=== PATIENT | male | born 1940 | race African-American/Black ===

== ENCOUNTER 2020-04-29 00:09 | Inpatient (IN) | payer MEDICARE, MEDICAID ==
[~2020-04-29] VITALS: Ht 172.7 cm; Wt 80.7 kg
[2020-04-29] MEDS ORDERED: Acetaminophen 650 MG SUPP RECTAL ONE (00:15)
--- NOTE | 2020-04-29 00:18 | Emergency Room Report ---
History of Present Illness General Chief Complaint: Fever Source: Medical Record, EMS Present Illness HPI This is a 79-year-old male with history dementia. He resides in a [facility]. He is DNR. He presents with chief complaint of fever and altered mental status. Onset this morning. Fever been on and off. Better with Tylenol. He tested positive for Covid today. Because of the continued fever, he was sent here to be evaluated. Patient has decreased mentation. Decreased p.o. intake. No nausea vomiting or diarrhea. Unknown cough. History limited because of his dementia. 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 COVID-19 Screening: Positive COVID-19 COVID-19 Testing Source: 04/28/20 Patient History Past Medical History: see triage record, old chart reviewed, dementia Past Surgical History: other Pertinent Family History: none Social History: Denies: smoking Immunizations: other Reviewed Nursing Documentation: PMH: Agreed; PSxH: Agreed Review of Systems Constitutional: Reports: fever, malaise, weakness Eye: Denies: eye pain, blurred vision ENT: Denies: ear pain, nose congestion, throat swelling Respiratory: Denies: cough, shortness of breath Cardiovascular: Denies: chest pain, palpitations Gastrointestinal: Denies: abdominal pain, diarrhea, nausea, vomiting Musculoskeletal: Denies: back pain, joint pain Skin: Denies: rash Neurological: Denies: headache, numbness Endocrine: Denies: increased thirst, increased urine Hematologic/Lymphatic: Denies: easy bruising All Other Systems: negative except mentioned in HPI Physical Exam Vital Signs Date Time Temp Pulse Resp B/P (MAP) Pulse Ox O2 Delivery O2 Flow Rate FiO2 04/29/20 00:11 100.6 76 20 132/80 (97) 94 Room Air Vitals with low-grade fever Sp02 EP Interpretation: reviewed, normal General Appearance: lethargic, other - Ill-appearing Head: normocephalic, atraumatic Eyes: bilateral eye PERRL, bilateral eye EOMI ENT: hearing grossly normal, normal pharynx Neck: full range of motion, supple, no meningismus Respiratory: chest non-tender, lungs clear, normal breath sounds Cardiovascular #1: regular rate, rhythm, no murmur Gastrointestinal: normal bowel sounds, non tender, no mass, no organomegaly, no bruit, non-distended Musculoskeletal: back normal, normal range of motion, other - Contracted Psychiatric: other Procedures Critical Care Time Critical Care Time Critical care is mandated in this patient who presented with sepsis from Covid pneumonia. Patient require my urgent intervention to attenuate the risks of metabolic collapse which may lead to cardiovascular collapse and . Critical care time is 35 minutes excluding any reportable procedure. Critical c are time included evaluation, multiple reevaluation, looking at old charts, interpreting laboratory and diagnostic data, discussing case with patient and family and consultants, and charting. Medical Decision Making Diagnostic Impression: Primary Impression: Sepsis Qualified Codes: A41.9 - Sepsis, unspecified organism Additional Impressions: Pneumonia due to COVID-19 virus Acute metabolic encephalopathy ER Course Patient presents with fever and is positive for Covid. Chest x-ray show bilateral his tissue infiltrates. Patient received antibiotics here. Oxygenation is normal. Because of this I held off on Decadron. Prognosis is poor because of his age and medical condition. Will admit for further work-up. I contacted Dr. Deras for admission. EKG Diagnostic Results Troponin ordered: Yes Rate: normal Rhythm: NSR ST Segments: other - NSST changes Rhythm Strip Diag. Results Rate: 80 Rhythm: NSR Chest X-Ray Diagnostic Results Chest X-Ray Diagnostic Results : Chest X-Ray Ordered: Yes # of Views/Limited/Complete: 1 View Indication: Shortness of Breath EP Interpretation: Yes Interpretation: no effusion, no pneumothorax, other - b/l lower lobe infiltrates Impression: Other - b/l infiltrates Electronically Signed by: Harpreet Aaron MD Last Vital Signs Date Time Temp Pulse Resp B/P (MAP) Pulse Ox O2 Delivery O2 Flow Rate FiO2 04/29/20 00:11 100.6 76 20 132/80 (97) 94 Room Air Status: improved Disposition: ADMITTED INPATIENT Condition: Serious Harpreet Aaron MD Apr 29, 2020 00:18
[2020-04-29] MEDS ORDERED: ZOFRAN4 M3 ORAL (00:19)
[2020-04-29] MEDS ORDERED: TYLENOL325 MG ORAL (00:19)
[2020-04-29] MEDS ORDERED: OMEPRAZOLE20 M2 ORAL (00:19)
[2020-04-29] MEDS ORDERED: RISPERDAL0.5 MG ORAL (00:19)
--- NOTE | 2020-04-29 00:20 | NUR ---
ED Nurse Note: Pt came to the [facility]. C/O fever x1 day. Pt is covid postive 04/28/2020. current temp is 102.5.
--- NOTE | 2020-04-29 00:35 | NUR ---
ED Nurse Note: Monitor on, pt is on the hospital gown, and iv intiated. blood, Mrsa and vre swab, and urine sent to the lab. Lombardo cath 16f inserted. chest x-ray done.
[2020-04-29 00:45] VITALS: BP 128/73
[2020-04-29 00:56] LABS: APPEARANCE,URINE CLEAR; BILIRUBIN, URINE NEGATIVE (NEGATIVE); GLUCOSE, URINE (UA) NEGATIVE (NEGATIVE); KETONES,URINE NEGATIVE (NEGATIVE); LEUKOCYTE ESTERASE ,URINE NEGATIVE (NEGATIVE); NITRITE,URINE NEGATIVE (NEGATIVE); PH,URINE 5 (4.5-8.0); PROTEIN,URINE 2+ (NEGATIVE); UROBILINOGEN,URINE NORMAL MG/DL (0.0-1.0)
[2020-04-29 01:00] LABS: COLOR,URINE PALE YELLOW; HEMATOCRIT 40.2 % (42.0-52.0); HEMOGLOBIN 14.3 G/DL (14.2-18.0); MEAN CORPUSCULAR VOLUME 87 FL (80-99); PLATELET COUNT 101 K/UL (150-450); RED BLOOD COUNT 4.64 M/UL (4.70-6.10); RED CELL DISTRIBUTION WIDTH 14.7 % (11.6-14.8)
[2020-04-29 01:13] LABS: ANION GAP 6 mmol/L (5-15); BLOOD UREA NITROGEN 16 mg/dL (7-18); CALCIUM 9.1 MG/DL (8.5-10.1); CARBON DIOXIDE 31 MMOL/L (21-32); CHLORIDE 103 MMOL/L (98-107); CREATININE 1.1 MG/DL (0.55-1.30); POTASSIUM 4.4 MMOL/L (3.5-5.1); SODIUM 140 MMOL/L (136-145)
--- NOTE | 2020-04-29 01:17 | Diagnostic Imaging Report ---
EXAM: XR Chest, 1 View CLINICAL HISTORY: SOB TECHNIQUE: Frontal view of the chest. COMPARISON: No previous studies. FINDINGS: Lungs: Patchy airspace disease is noted medially at the right lung base possibly on the basis of earlier residual pneumonia. Pleural space: Unremarkable. No pneumothorax. Heart: Similar finding at the right to cardiac region of the left lung base. Heart is normal in size per Mediastinum: Unremarkable. Bones/joints: Osteopenia. 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 Vasculature: Atherosclerotic disease of the aortic knob. Upper abdomen: Elevation of the left hemidiaphragm. IMPRESSION: 1. Bibasilar patchy airspace disease differential etiologies for which includes by basilar pneumonias versus atelectasis. 2. Osteopenia.
[2020-04-29 01:28] LABS: ALANINE AMINOTRANSFERASE 67 U/L (12-78); ALBUMIN 3.9 G/DL (3.4-5.0); ALBUMIN/GLOBULIN RATIO 1.1 (1.0-2.7); ALKALINE PHOSPHATASE 51 U/L (46-116); ASPARTATE AMINO TRANSFERASE 59 U/L (15-37); BILIRUBIN,TOTAL 0.5 MG/DL (0.2-1.0); CKMB 10.4 NG/ML (0.0-3.6); CREATINE KINASE 1805 U/L (26-308); FERRITIN 502 NG/ML (8-388); LACTATE DEHYDROGENASE 188 U/L (81-234)
--- NOTE | 2020-04-29 01:40 | Emergency Room Report ---
Sepsis Event Note Evaluation Current Stage of Sepsis: Sepsis Possible Source: Pulmonary Focused Exam Allergies: Coded Allergies: No Known Allergies (Unverified , 04/29/20) Date Exam Occurred: Apr 29, 2020 Time Exam Occurred: 01:40 Laboratory Studies Laboratory Tests Test 04/29/20 00:32 04/29/20 01:27 White Blood Count 11.0 K/UL (4.8-10.8) H Red Blood Count 4.64 M/UL (4.70-6.10) L Hemoglobin 14.3 G/DL (14.2-18.0) Hematocrit 40.2 % (42.0-52.0) L Mean Corpuscular Volume 87 FL (80-99) Mean Corpuscular Hemoglobin 30.9 PG (27.0-31.0) Mean Corpuscular Hemoglobin Concent 35.7 G/DL (32.0-36.0) Red Cell Distribution Width 14.7 % (11.6-14.8) Platelet Count 101 K/UL (150-450) L Mean Platelet Volume 11.0 FL (6.5-10.1) H Neutrophils (%) (Auto) % (45.0-75.0) Lymphocytes (%) (Auto) % (20.0-45.0) Monocytes (%) (Auto) % (1.0-10.0) Eosinophils (%) (Auto) % (0.0-3.0) Basophils (%) (Auto) % (0.0-2.0) Differential Total Cells Counted 100 Neutrophils % (Manual) 91 % (45-75) H Lymphocytes % (Manual) 4 % (20-45) L Monocytes % (Manual) 5 % (1-10) Eosinophils % (Manual) 0 % (0-3) Basophils % (Manual) 0 % (0-2) Band Neutrophils 0 % (0-8) Platelet Estimate Decreased L Platelet Morphology Normal Anisocytosis 1+ Prothrombin Time 11.4 SEC (9.30-11.50) Prothromb Time International Ratio 1.0 (0.9-1.1) Activated Partial Thromboplast Time 24 SEC (23-33) D-Dimer 4.46 mg/L FEU (0.00-0.49) H Urine Color Pale yellow Urine Appearance Clear Urine pH 5 (4.5-8.0) Urine Specific [place] 1.025 (1.005-1.035) Urine Protein 2+ (NEGATIVE) H Urine Glucose (UA) Negative (NEGATIVE) Urine Ketones Negative (NEGATIVE) Urine Blood 1+ (NEGATIVE) H Urine Nitrite Negative (NEGATIVE) Urine Bilirubin Negative (NEGATIVE) Urine Urobilinogen Normal MG/DL (0.0-1.0) Urine Leukocyte Esterase Negative (NEGATIVE) Urine RBC 0-2 /HPF (0 - 0) H Urine WBC 0-2 /HPF (0 - 0) Urine Squamous Epithelial Cells Occasional /LPF Urine Bacteria Occasional /HPF (NONE) Urine Mucus Occasional /LPF Sodium Level 140 MMOL/L (136-145) Potassium Level 4.4 MMOL/L (3.5-5.1) Chloride Level 103 MMOL/L (98-107) Carbon Dioxide Level 31 MMOL/L (21-32) Anion Gap 6 mmol/L (5-15) Blood Urea Nitrogen 16 mg/dL (7-18) Creatinine 1.1 MG/DL (0.55-1.30) Estimat Glomerular Filtration Rate > 60 mL/min (>60) Glucose Level 131 MG/DL (74-106) H Lactic Acid Level 2.60 mmol/L (0.4-2.0) H Pending Calcium Level 9.1 MG/DL (8.5-10.1) Ferritin 502 NG/ML (8-388) H Total Bilirubin 0.5 MG/DL (0.2-1.0) Aspartate Amino Transf (AST/SGOT) 59 U/L (15-37) H Alanine Aminotransferase (ALT/SGPT) 67 U/L (12-78) Alkaline Phosphatase 51 U/L (46-116) Lactate Dehydrogenase 188 U/L (81-234) Total Creatine Kinase 1805 U/L (26-308) H Creatine Kinase MB 10.4 NG/ML (0.0-3.6) H Creatine Kinase MB Relative Index 0.5 Troponin I 0.013 ng/mL (0.000-0.056) C-Reactive Protein, Quantitative 3.6 mg/dL (0.00-0.90) H Pro-B-Type Natriuretic Peptide 117 pg/mL (0-125) Total Protein 7.4 G/DL (6.4-8.2) Albumin 3.9 G/DL (3.4-5.0) Globulin 3.5 g/dL Albumin/Globulin Ratio 1.1 (1.0-2.7) Lipase 94 U/L (73-393) Vital Signs Last 24 Hour Vital Signs Date Time Temp Pulse Resp B/P (MAP) Pulse Ox O2 Delivery O2 Flow Rate FiO2 04/29/20 00:50 72 19 Room Air 04/29/20 00:45 102.5 72 19 128/73 99 Room Air 04/29/20 00:11 100.6 76 20 132/80 (97) 94 Room Air Respiratory Exam: Rhonchi Cardiovascular Exam: RRR Capillary Refill: Less Than 2 Seconds Peripheral Pulse: Strong Pulse Location: Radial Skin Exam: Normal Turgor Harpreet Aaron MD Apr 29, 2020 01:40
[2020-04-29] MEDS ORDERED: Azithromycin 500 MG in NS 275 ML IV ONE (01:45)
[2020-04-29] MEDS ORDERED: Acetaminophen 650 MG SUPP RECTAL PRN ×3 (01:45→05:00)
[2020-04-29] MEDS ORDERED: cefTRIAXone 1 GM in NS 55 ML IVPB ONE (01:45)
[2020-04-29] MEDS ORDERED: Enoxaparin 80mg Inj SUBQ ONE (01:45)
--- NOTE | 2020-04-29 02:10 | NUR ---
TRANSFER TO FLOOR: Patient transferred 4E 409-2 as ordered, per Dr ortiz . Report given to TURNER Story. RN Transfered pt in a stable condition
--- NOTE | 2020-04-29 02:20 | NUR ---
NURSE NOTES: Received patient per rylee accompanied by ER STAFF. patient is alert and oriented x1.calm. on room air. no sob. iv access on the RFA, 18 gauge. noted with valdovinos catheter 16F, inserted in ED. DNR/DNI. pending cre and mrsa results. skin assessment done. no belongings. oriented to room set-up. reality orientation rendered. bed locked and in lowest position. call light and light button within easy reach. bed alarm on. vitals of 128/76mmhg, 78 bpm, 20 cpm, 99.1 F, 97% on room air.
[2020-04-29 04:00] VITALS: BP 126/78
--- NOTE | 2020-04-29 04:00 | NUR ---
NURSE NOTES: Received admission orders from dr. mason. noted and carried out. charge nurse made aware
--- NOTE | 2020-04-29 06:31 | NUR ---
NURSE HAND-OFF: Important Events on Shift: admission; temp of 98.2-99.1. Patient Status: stable Diet: regular Pending Orders: Pending Results/Labs: Pending MD notification: Latest Vital Signs: Temperature 98.1 , Pulse 76 , B/P 126 /78 , Respiratory Rate 20 , O2 SAT 97 , Room Air, O2 Flow Rate . Vital Sign Comment: Latest Reynolds Fall Score: 60 Fall Risk: High Risk Safety Measures: Call light Within Reach, Bed Alarm Zone 1, Side Rails Side Rails x2, Bed position Low and Locked. Fall Precautions: Yellow Socks Yellow Gown Door Sign Patient Fall Education Addendum: 04/29/20 at 0731 by Nettie Albarran RN HAND-OFF: Report given to juan olivera.
[2020-04-29] MEDS ORDERED: RISPERDAL1 MG/1 ML PO (06:39)
[2020-04-29 08:00] VITALS: BP 133/75
--- NOTE | 2020-04-29 08:00 | NUR ---
NURSE NOTES: received pt in bed, very somnolent. In NAD, no sign of pain or discomfort. RFA PIV access, saline locked. F/C for urinary retention. Bed locked at the lowest position possible, call light within easy reach, side rails x2. Will continue to monitor pt and follow up with the plan of care.
[2020-04-29 12:00] VITALS: BP 147/88
[2020-04-29 16:00] VITALS: BP 146/77
--- NOTE | 2020-04-29 17:00 | Consultation ---
DATE OF CONSULTATION: 04/29/2020 INFECTIOUS DISEASE CONSULTATION This consult is for coverage of Dr. Wright. CONSULTING PHYSICIAN: Fransisco Diaz MD PRIMARY ATTENDING: Naresh Deras MD REASON FOR CONSULTATION: COVID-19 disease. HISTORY OF PRESENT ILLNESS: This is a 79[facility] today because of fever, altered mental status. He had a positive test for COVID-19 in the facility yesterday. Had a temperature of 100.6. Had lactic acidosis. PAST MEDICAL HISTORY: Dementia with behavioral problem. ALLERGIES: No known drug allergy. MEDICATIONS: Getting risperidone, Tylenol, ceftriaxone, azithromycin. SOCIAL HISTORY: . [facility] resident. No other history obtainable by the patient. PHYSICAL EXAMINATION: VITAL SIGNS: Temperature 97.8, pulse 68, blood pressure 47/88. GENERAL APPEARANCE: Seems to have normal weight. No acute distress. HEAD AND NECK: Moist mucous membranes. [place] conjunctivae. HEART: Normal rate. LUNGS: Clear. Patient is on room air oxygen. ABDOMEN: Soft. EXTREMITIES: No edema. LABORATORY AND DIAGNOSTIC DATA: WBC 11, hemoglobin 14.3, hematocrit 40.2, platelets 101. Sodium 140, potassium 4.4, chloride 103, bicarb 30, BUN 16, creatinine 1.1, glucose 131. Lactic acid was initially 2.6, decreased to 1.9. CK elevated 1805. Urine negative. Chest x-ray patchy airspace disease, osteopenia. IMPRESSION: COVID-19 pneumonia. Patient is not hypoxic, he is on room air oxygen. Has altered mental status, acidosis, rhabdomyolysis, dementia. RECOMMENDATION: Continue with ceftriaxone and azithromycin. We will follow up the culture. We will follow up the clinical course. At the end of my exam, I thank Dr. Deras, for involving me in the care of this patient. Fransisco Diaz M.D. DR: JAMIL JOB#: [id number] CC: KERLINE
--- NOTE | 2020-04-29 19:35 | NUR ---
NURSE NOTES: Received report from juan olivera patient on bed, asleep. on room air. no sob. no moaning or facial grimacing noted. iv access on the right forearm, saline lock. valdovinos catheter 16 f, draining well. DNR/DNI. bed locked and in lowest position. call light and light button within easy reach. bed alarm on. side rails x3 up. will strictly follow isolation. will continue plan of care.
--- NOTE | 2020-04-29 19:46 | NUR ---
NURSE HAND-OFF: Important Events on Shift:[] Patient Status: [] Diet: [Regular] Pending Orders: [] Pending Results/Labs:[] Pending MD notification:[] Latest Vital Signs: Temperature 98.2 , Pulse 67 , B/P 146 /77 , Respiratory Rate 18 , O2 SAT 95 , Room Air, O2 Flow Rate . Vital Sign Comment: [] Latest Reynolds Fall Score: 60 Fall Risk: High Risk Safety Measures: Call light Within Reach, Bed Alarm Zone 1, Side Rails Side Rails x2, Bed position Low and Locked. Fall Precautions: Yellow Socks Yellow Gown Door Sign Patient Fall Education Report given to [TURNER Albarran].
[2020-04-29 20:00] VITALS: BP 137/78
--- NOTE | 2020-04-29 21:10 | NUR ---
FAMILY CONTACT DAUGHTER IRVIN HASSAN CALLED CELL [phone] UPDATED ON FACESHEET
--- NOTE | 2020-04-29 21:15 | History and Physical Report ---
DATE OF ADMISSION: 04/29/2020 HISTORY OF PRESENT ILLNESS: This is a 79-year-old male, [facility] from [facility] where he [facility] as COVID pneumonia. The patient has minimum short of breath and no palpitation. The patient is currently confused. He is in the bed. PAST MEDICAL HISTORY: Significant for depression, GERD, history of anemia. MEDICATIONS: He is taking omeprazole, Zofran, Risperdal. ALLERGIES: NKA. FAMILY HISTORY: Noncontributory. SOCIAL HISTORY: [facility], [facility]. PHYSICAL EXAMINATION: VITAL SIGNS: Blood pressure is 146/77, pulse 67, respirations 18, temperature 98.2. HEENT: AT, NC. EOMI. PERRLA. NECK: Supple. No JVD. CHEST: Bilateral few crackles. CARDIOVASCULAR: Regular rhythm. No gallop. No murmur. ABDOMEN: Soft. Positive bowel sounds. Nontender. EXTREMITIES: CCE. NEUROLOGICAL: The patient has generalized weakness. GENITOURINARY: Deferred. DIAGNOSTIC DATA: His chest x-ray, bibasilar patchy airspace disease, for bibasilar pneumonia, no . ASSESSMENT: 1. COVID pneumonia. 2. Hypertension. 3. Dementia. 4. Failure to thrive. PLAN: We will admit on medical floor. Start IV antibiotics, ceftriaxone, Zithromax, and Risperdal. Continue Decadron. Consider Pulmonary consult. Naresh Deras M.D. DR: BLANE JOB#: [id number] CC:
[2020-04-30] VITALS: BP 140/74
[2020-04-30 04:00] VITALS: BP 138/82
--- NOTE | 2020-04-30 06:17 | NUR ---
NURSE HAND-OFF: Important Events on Shift:[facility]; AFEBRILE Patient Status: STABLE Diet: REGULAR Pending Orders: Pending Results/Labs: Pending MD notification: Latest Vital Signs: Temperature 98.1 , Pulse 79 , B/P 138 /82 , Respiratory Rate 20 , O2 SAT 96 , Room Air, O2 Flow Rate . Vital Sign Comment: Latest Reynolds Fall Score: 60 Fall Risk: High Risk Safety Measures: Call light Within Reach, Bed Alarm Zone 1, Side Rails Side Rails x2, Bed position Low and Locked. Fall Precautions: Yellow Socks Yellow Gown Door Sign Patient Fall Education Addendum: 04/30/20 at 0749 by Nettie Albarran RN HAND-OFF: Report given to juan hernández.
[2020-04-30 08:00] VITALS: BP 144/77
[2020-04-30] MEDS ORDERED: Azithromycin 500 MG in D5W 275 ML IV SCH ×2 (08:00→11:00)
--- NOTE | 2020-04-30 08:00 | Consultation ---
DATE OF CONSULTATION: 04/29/2020 PULMONARY CONSULTATION CONSULTING PHYSICIAN: Rip Chakraborty MD HISTORY OF PRESENT ILLNESS: This is a 79-year-old male admitted to the hospital from a detention. He is DNR with dementia. He was admitted with a history of fever and altered mental status. He has been tested positive for COVID-19. He was sent for evaluation. Currently, he is saturating well on room air. PAST MEDICAL HISTORY: Dementia, DNR status, [facility] resident. ALLERGIES: None reported. HOME MEDICATIONS: Reviewed reconciled in the chart. PAST SURGICAL HISTORY: As discussed above. REVIEW OF SYSTEMS: Not obtainable. PHYSICAL EXAMINATION: GENERAL: Reveals a 79-year-old male. HEENT: Unremarkable. LUNGS: Clear breath sounds bilaterally. ABDOMEN: Soft. EXTREMITIES: There is no edema. NEUROLOGIC: Nonfocal. VITAL SIGNS: Blood pressure 140/80, heart rate 76/min, respiratory rate 18. LABORATORY DATA: Lab testing shows white count 11,000, hemoglobin 14. Chemistries normal. Lactic acid 2.6, now 1.9. Coags are negative. Urinalysis shows few pus cells. CXR obtained, which shows patchy bilateral lung field disease bilaterally. IMPRESSION: 1. COVID-19 pneumonia. 2. Normoxemia. 3. Dementia. 4. DNR. DISCUSSION: Agree with admission and care. Currently, the patient is doing well on room air. We will follow carefully. He is on broad-spectrum antibiotics, which I will continue. We will follow. Hold off on Decadron or remdesivir. Rip Chakraborty M.D. DR: KIMI JOB#: [id number] CC: KERLINE
[2020-04-30] MEDS ORDERED: cefTRIAXone 1 GM in D5W 55 ML IVPB SCH (09:00)
--- NOTE | 2020-04-30 09:00 | NUR ---
NURSE NOTES: received report from RN Jc Herrera. Patient in bed, asleep, in NAD, no sign of pain or discomfort. RFA PIV access, saline locked. F/C for urinary retention. Bed locked at the lowest position possible, call light within easy reach, side rails x2. Will continue to monitor pt and follow up with the plan of care.
--- NOTE | 2020-04-30 11:42 | Infectious Diseases Prog Note ---
Assessment/Plan Assessment/Plan antibiotics : ceftriaxone, azithromycin A 1. COVID 19 pneumonia on room air, 95 % saturation 2. GERD 3. anemia P 1. d/c ceftriaxone, azithromycin 2. observe off antibiotics 3. continue isolation Subjective ROS Limited/Unobtainable: Yes Allergies: Coded Allergies: No Known Allergies (Unverified , 04/29/20) Objective Last 24 Hour Vital Signs Date Time Temp Pulse Resp B/P (MAP) Pulse Ox O2 Delivery O2 Flow Rate FiO2 04/30/20 08:00 99.5 75 18 144/77 (99) 94 04/30/20 04:00 98.1 79 20 138/82 (100) 96 04/30/20 00:00 98.2 76 18 140/74 (96) 95 04/29/20 21:00 Room Air 04/29/20 20:00 98.3 77 18 137/78 (97) 96 04/29/20 16:00 98.2 67 18 146/77 (100) 95 04/29/20 12:00 97.8 68 18 147/88 (107) 95 Height (Feet): 5 Height (Inches): 8.00 Weight (Pounds): 178 Microbiology Date/Time Source Procedure Growth Status 04/29/20 00:32 Blood Blood Culture - Preliminary NO GROWTH AFTER 24 HOURS Resulted 04/29/20 00:32 Blood Blood Culture - Preliminary NO GROWTH AFTER 24 HOURS Resulted Current Medications Medications (Trade) Dose Ordered Sig/Allegra Route PRN Reason Start Time Stop Time Status Last Admin Dose Admin Acetaminophen (Tylenol) 650 mg Q4H PRN RECTAL Mild Pain (Pain Scale 1-3) 04/29/20 05:00 05/29/20 04:59 Acetaminophen (Tylenol) 650 mg Q4H PRN RECTAL Temp >100.5 04/29/20 05:00 05/29/20 04:59 Azithromycin 500 mg/Dextrose 275 ml @ 275 mls/hr Q24HRS IV 04/30/20 11:00 05/06/20 11:59 Ceftriaxone Sodium 1 gm/ Dextrose 55 ml @ 110 mls/hr Q24H IVPB 04/30/20 09:00 05/07/20 08:59 04/30/20 09:49 Risperidone (RisperDAL) 0.5 mg BID ORAL 04/29/20 09:00 06/13/20 08:59 04/30/20 09:47 Rizwana Wright MD Apr 30, 2020 11:42
[2020-04-30 12:00] VITALS: BP 138/72
--- NOTE | 2020-04-30 12:07 | General Progress Note ---
Subjective Date patient seen: Apr 30, 2020 Constitutional: Reports: no symptoms Allergies: Coded Allergies: No Known Allergies (Unverified , 04/29/20) Objective Last 24 Hour Vital Signs Date Time Temp Pulse Resp B/P (MAP) Pulse Ox O2 Delivery O2 Flow Rate FiO2 04/30/20 08:00 99.5 75 18 144/77 (99) 94 04/30/20 04:00 98.1 79 20 138/82 (100) 96 04/30/20 00:00 98.2 76 18 140/74 (96) 95 04/29/20 21:00 Room Air 04/29/20 20:00 98.3 77 18 137/78 (97) 96 04/29/20 16:00 98.2 67 18 146/77 (100) 95 Intake and Output 04/29/20 04/30/20 18:59 06:59 Intake Total 240 ml 150 ml Output Total 600 ml 350 ml Balance -360 ml -200 ml Intake Oral 240 ml 150 ml Output Urine Total 600 ml 350 ml Height (Feet): 5 Height (Inches): 8.00 Weight (Pounds): 178 General Appearance: confused EENT: PERRL/EOMI Neck: supple Cardiovascular: regular rhythm Respiratory/Chest: crackles/rales Abdomen: non tender, soft Extremities: non-tender Assessment/Plan Assessment/Plan: 1 covid pna 2 uti 3 failure of thrive 4 htn 5 dementia iv abx iv decadrone id and pulmo consult resume gt feeding Usman Deras MD Apr 30, 2020 12:07
--- NOTE | 2020-04-30 12:50 | Pulmonology Progress Note ---
Subjective ROS Limited/Unobtainable: Yes Interval Events: none new Constitutional: Reports: no symptoms HEENT: Repors: no symptoms Respiratory: Reports: no symptoms Cardiovascular: Reports: no symptoms Gastrointestinal/Abdominal: Reports: no symptoms Allergies: Coded Allergies: No Known Allergies (Unverified , 04/29/20) Objective Last 24 Hour Vital Signs Date Time Temp Pulse Resp B/P (MAP) Pulse Ox O2 Delivery O2 Flow Rate FiO2 04/30/20 12:00 99.2 80 18 138/72 (94) 95 04/30/20 09:00 Room Air 04/30/20 08:00 99.5 75 18 144/77 (99) 94 04/30/20 04:00 98.1 79 20 138/82 (100) 96 04/30/20 00:00 98.2 76 18 140/74 (96) 95 04/29/20 21:00 Room Air 04/29/20 20:00 98.3 77 18 137/78 (97) 96 04/29/20 16:00 98.2 67 18 146/77 (100) 95 Intake and Output 04/29/20 04/30/20 19:00 07:00 Intake Total 240 ml 150 ml Output Total 600 ml 350 ml Balance -360 ml -200 ml Intake Oral 240 ml 150 ml Output Urine Total 600 ml 350 ml Objective 04/30/2020 pt appears failure to thrive, sitting in bed chewing meals provided by [employer]PER[employer]; NAD; well saturated on RA General Appearance: other - thin HEENT: normocephalic, atraumatic Respiratory: chest wall non-tender, lungs clear, normal breath sounds Cardiovascular: normal rate, regular rhythm, no JVD Abdomen: soft, non tender Genitourinary: other - Lombardo Extremities: no edema Microbiology Date/Time Source Procedure Growth Status 04/29/20 00:32 Blood Blood Culture - Preliminary NO GROWTH AFTER 24 HOURS Resulted 04/29/20 00:32 Blood Blood Culture - Preliminary NO GROWTH AFTER 24 HOURS Resulted Current Medications Medications (Trade) Dose Ordered Sig/Allegra Route PRN Reason Start Time Stop Time Status Last Admin Dose Admin Acetaminophen (Tylenol) 650 mg Q4H PRN RECTAL Mild Pain (Pain Scale 1-3) 04/29/20 05:00 05/29/20 04:59 Acetaminophen (Tylenol) 650 mg Q4H PRN RECTAL Temp >100.5 04/29/20 05:00 05/29/20 04:59 Risperidone (RisperDAL) 0.5 mg BID ORAL 04/29/20 09:00 06/13/20 08:59 04/30/20 09:47 Assessment/Plan Assessment/Plan IMPRESSION: 1. COVID-19 pneumonia. - Cont broad-spectrum Abx - CXR 04/29/2020: Bibasilar patchy airspace disease 2. Normoxemia. - doing well on room air - Hold off on Decadron or remdesivir. 3. Dementia. 4. DNR. The history of Rudy Almaraz has been reviewed and management options for him have been examined and discussed by Rip Chakraborty. I have personally examined and interviewed the patient. The care for this patient was discussed with my supervising physician Time spent for this care was approximately 31 Roldan Montoya Apr 30, 2020 12:50 Rip Chakraborty MD Apr 30, 2020 17:35
--- NOTE | 2020-04-30 14:21 | NUR ---
NURSE NOTES:WOUND CARE NOTES:Pt presented on admission with multiple Pressure Injuries. Sacrum is red ,non-blanching with surrounding darker skin tone without fluctuance ,induration.(L)1.5cm x (W)4cm. DTPI L Trochanter(L)5cm x (W)9cm. Base of pressure Injury is maroon and indurated.No evidence of further skin breakdown periwound. No erythema noted to R trochanteric. Non-Blanchable erythema with delineated Margins,that is boggy noted to R Heel (L)5cm x (W)4.3cm. L Heel is boggy with Non-Blanchable erythema. Tx.Plan: Apply Moisture Barrier Paste to Sacrum. Cover with Optifoam Drsg. Change every 3 days and prn. Apply Cavilon Skin Barrier to R and L Trochanteric areas. Cover each site with Optifoam drsg. Apply Cavilon Skin Barrier to R and L Heels. Cover each heel with Optifoam drsg. Change every 7 days and prn. Reposition at least every 2hours or as tolerated. Off-load heels with Pillow.
[2020-04-30] MEDS: Megace 400mg/10ml Susp ORAL SCH (14:23)
[2020-04-30] MEDS: Azithromycin 500 MG in D5W 275 ML IV SCH (14:24)
[2020-04-30 16:00] VITALS: BP 134/69
--- NOTE | 2020-04-30 16:13 | NUR ---
CASE MANAGEMENT:INITIAL REVIEW 79 YR OLD MALE BIBA FROM [facility] CC;FEVER SI;COVID PNEUMONIA. SEPSIS. ACUTE METABOLIC ENCEPHALOPATHY. 102.5 72 20 132/80 94% ON RA WBC 11.0 PLT 101 LAC ACID 2.60 FERRITIN 502 AST 59 TCK 1805 CK-2 10.4 CRP 3.6 D-DIMER 4.46 UA+ PROTEIN, BLOOD, RBC IS;TYLENOL RECTAL IVF NS BOLUS ROCEPHIN IV ZITHROMAX IVB LOVENOX SQ ADMITTED TO MED SURG MED SURG STATUS DCP;FROM [facility]
[2020-04-30] MEDS ORDERED: MULTIVITAMIN1 EACH PO (17:33)
[2020-04-30] MEDS ORDERED: ACETAMINOPHEN325 M1 ORAL (17:33)
[2020-04-30] MEDS ORDERED: TWOCAL HN LIQU237 ML PO (17:33)
[2020-04-30] MEDS ORDERED: RISPERDAL0.5 MG ORAL (17:33)
--- NOTE | 2020-04-30 19:30 | NUR ---
NURSE HAND-OFF: Important Events on Shift:[] Patient Status: [stable] Diet: [regular with Sae TID] Pending Orders: [nutr eval] Pending Results/Labs:[] Pending MD notification:[] Latest Vital Signs: Temperature 98.4 , Pulse 87 , B/P 134 /69 , Respiratory Rate 20 , O2 SAT 95 , Room Air, O2 Flow Rate . Vital Sign Comment: [] Latest Reynolds Fall Score: 60 Fall Risk: High Risk Safety Measures: Call light Within Reach, Bed Alarm Zone 1, Side Rails Side Rails x2, Bed position Low and Locked. Fall Precautions: Yellow Socks Yellow Gown Door Sign Patient Fall Education Report given to [TURNER Cuello].
[2020-04-30 20:00] VITALS: BP 134/72
--- NOTE | 2020-04-30 20:00 | NUR ---
NURSE NOTES: Patient received in bed, awake, calm, disoriented, speech incomprehensible. FC draining. IV intact. Bed locked in low position. Will continue to monitor.
--- NOTE | 2020-04-30 23:07 | Psychiatry Consultation ---
Psychiatry Consultation Psychiatry Consultation Chief Complaint: Fever History of Present Illness: 79-year-old male with a history of depression, GERD, and anemia. He has been admitted to the hospital due to COVID pneumonia. The patient presents with depressed mood, anhedonia, anxiety, low energy, fatigue. PAST PSYCHIATRIC HISTORY: Depression and anxiety. PAST MEDICAL HISTORY: GERD and anemia. ALLERGIES: No known drug allergies. SUBSTANCE ABUSE HISTORY: No history of illicit drug use or alcohol. MENTAL STATUS EXAMINATION: The patient is alert, oriented times self, place, situation. Mood is depressed. Affect is blunted, congruent with mood. Thought process is concrete. Thought content, no suicidal, homicidal ideation. Cognition is impaired. Insight and judgment fair. ASSESSMENT: [place] I Major depressive disorder. [place] II Deferred. [place] III COVID-19. [place] IV Low. [place] V 50 PLAN: 1. We will start the patient on antidepressant. 2. Provide the patient with reality orientation and supportive therapy. Allergies: Coded Allergies: No Known Allergies (Unverified , 04/29/20) Medication History Scheduled Multivitamin (Multivitamin), 1 EACH PO DAILY, (Reported) Nut.sup,Spec.frm,L-Fr,Iron/Fos (Twocal Hn Liquid), 237 ML PO DAILY, (Reported) Omeprazole (Omeprazole), 20 MG ORAL DAILY, (Reported) Risperidone* (Risperdal*), 0.5 MG ORAL BID, (Reported) Scheduled PRN Acetaminophen* (Acetaminophen 325MG Tablet*), 650 MG ORAL Q4H PRN for TEMP>100F , (Reported) Ondansetron* (Zofran*), 4 MG ORAL Q6H PRN for Nausea & Vomiting, (Reported) Discontinued Medications Risperidone (Risperdal), 0.5 MG PO BID, (Reported) Discontinued Reason: Prescription changed Objective Data Height (Feet): 5 Height (Inches): 8.00 Weight (Pounds): 178 Emily Rowland MD Apr 30, 2020 23:07
[2020-05-01] VITALS: BP 120/69
[2020-05-01 04:00] VITALS: BP 121/68
--- NOTE | 2020-05-01 07:47 | NUR ---
NURSE HAND-OFF: Important Events on Shift:[uneventful] Patient Status: [stable] Diet: [Reg] Pending Orders: [] Pending Results/Labs:[] Pending MD notification:[] Latest Vital Signs: Temperature 97.8 , Pulse 59 , B/P 121 /68 , Respiratory Rate 20 , O2 SAT 96 , Room Air, O2 Flow Rate . Vital Sign Comment: [] Latest Reynolds Fall Score: 50 Fall Risk: High Risk Safety Measures: Call light Within Reach, Bed Alarm Zone 1, Side Rails Side Rails x2, Bed position Low and Locked. Fall Precautions: Yellow Socks Yellow Gown Door Sign Patient Fall Education Report given to [Solis TOMPKINS].
--- NOTE | 2020-05-01 07:59 | NUR ---
NURSE NOTES: Received report from TURNER Vincent. Rounding done. Pt asleep. No SOB noted. Bed in lowest position, call light within reach. Will continue to monitor.
[2020-05-01 08:00] VITALS: BP 136/90
[2020-05-01] MEDS: Megace 400mg/10ml Susp ORAL SCH (08:56)
[2020-05-01] MEDS ORDERED: cefTRIAXone 1 GM in D5W 55 ML IVPB SCH (09:00)
--- NOTE | 2020-05-01 09:14 | Pulmonology Progress Note ---
Subjective ROS Limited/Unobtainable: Yes Interval Events: none new Constitutional: Reports: no symptoms HEENT: Repors: no symptoms Respiratory: Reports: no symptoms Cardiovascular: Reports: no symptoms Gastrointestinal/Abdominal: Reports: no symptoms Allergies: Coded Allergies: No Known Allergies (Unverified , 04/29/20) Objective Last 24 Hour Vital Signs Date Time Temp Pulse Resp B/P (MAP) Pulse Ox O2 Delivery O2 Flow Rate FiO2 05/01/20 04:00 97.8 59 20 121/68 (85) 96 05/01/20 00:00 97.7 72 17 120/69 (86) 97 04/30/20 21:00 Room Air 04/30/20 20:00 96.6 75 19 134/72 (92) 95 04/30/20 16:00 98.4 87 20 134/69 (90) 95 04/30/20 12:00 99.2 80 18 138/72 (94) 95 Intake and Output 04/30/20 05/01/20 19:00 07:00 Intake Total 450 ml 0 ml Output Total 600 ml 300 ml Balance -150 ml -300 ml Intake Oral 120 ml 0 ml IV Total 330 ml Output Urine Total 600 ml 300 ml Objective 05/01/2020 FTT; persistent repetitive chewing motion noted; disoriented 04/30/2020 pt appears failure to thrive, sitting in bed chewing meals provided by SPECIAL EDUCATION EDUCATIONAL ASSISTANT; NAD; well saturated on RA General Appearance: other - thin HEENT: normocephalic, atraumatic Respiratory: chest wall non-tender, lungs clear, normal breath sounds Cardiovascular: normal rate, regular rhythm, no JVD Abdomen: soft, non tender Genitourinary: other - Lombardo Extremities: no edema Microbiology Date/Time Source Procedure Growth Status 04/29/20 00:32 Blood Blood Culture - Preliminary NO GROWTH AFTER 24 HOURS Resulted 04/29/20 00:32 Blood Blood Culture - Preliminary NO GROWTH AFTER 24 HOURS Resulted Current Medications Medications (Trade) Dose Ordered Sig/Allegra Route PRN Reason Start Time Stop Time Status Last Admin Dose Admin Acetaminophen (Tylenol) 650 mg Q4H PRN RECTAL Mild Pain (Pain Scale 1-3) 04/29/20 05:00 05/29/20 04:59 Acetaminophen (Tylenol) 650 mg Q4H PRN RECTAL Temp >100.5 04/29/20 05:00 05/29/20 04:59 Azithromycin 500 mg/Dextrose 275 ml @ 275 mls/hr Q24HRS IV 04/30/20 13:00 05/06/20 13:59 04/30/20 14:24 Ceftriaxone Sodium 1 gm/ Dextrose 55 ml @ 110 mls/hr Q24H IVPB 05/01/20 09:00 05/08/20 08:59 05/01/20 08:56 Megestrol Acetate (Megace) 400 mg DAILY ORAL 04/30/20 13:00 07/29/20 12:59 05/01/20 08:56 Risperidone (RisperDAL) 0.5 mg BID ORAL 04/29/20 09:00 06/13/20 08:59 05/01/20 08:56 Assessment/Plan Assessment/Plan IMPRESSION: 1. COVID-19 pneumonia. - s/p broad-spectrum Abx per ID - monitor off Abx per ID - CXR 04/29/2020: Bibasilar patchy airspace disease 2. Normoxemia. - doing well on room air - Hold off on Decadron or remdesivir. 3. Dementia. 4. DNR. 5. DVT ppx - on SCD We will follow. The care for this patient was discussed with my supervising physician Time spent for this care was approximately 31 muntes The patient was seen and examined at bedside and all new and available data was reviewed in the patients chart. I agree with the above findings, impression, and plan. (Patient was seen earlier today. Signature timestamp does not reflect patient encounter time) Roldan Avalos MD May 01, 2020 09:14 Rip Chakraborty MD May 01, 2020 16:26
--- NOTE | 2020-05-01 11:21 | Infectious Diseases Prog Note ---
Assessment/Plan Assessment/Plan antibiotics : none A 1. COVID 19 pneumonia on room air, 95 % saturation 2. GERD 3. anemia P 1. observe off antibiotics 2. continue isolation Subjective ROS Limited/Unobtainable: Yes Allergies: Coded Allergies: No Known Allergies (Unverified , 04/29/20) Objective Last 24 Hour Vital Signs Date Time Temp Pulse Resp B/P (MAP) Pulse Ox O2 Delivery O2 Flow Rate FiO2 05/01/20 09:00 Room Air 05/01/20 08:00 98.8 87 17 136/90 (105) 95 05/01/20 04:00 97.8 59 20 121/68 (85) 96 05/01/20 00:00 97.7 72 17 120/69 (86) 97 04/30/20 21:00 Room Air 04/30/20 20:00 96.6 75 19 134/72 (92) 95 04/30/20 16:00 98.4 87 20 134/69 (90) 95 04/30/20 12:00 99.2 80 18 138/72 (94) 95 Height (Feet): 5 Height (Inches): 8.00 Weight (Pounds): 178 Microbiology Date/Time Source Procedure Growth Status 04/29/20 00:32 Rectum VRE Culture - Final NO VANCOMYCIN RESISTANT ENTEROCOCCUS ... Complete 04/29/20 00:32 Rectum - Final NO CARBAPENEM-RESISTANT ENTEROBACTERI... Complete 04/29/20 00:32 Blood Blood Culture - Preliminary NO GROWTH AFTER 24 HOURS Resulted 04/29/20 00:32 Blood Blood Culture - Preliminary NO GROWTH AFTER 24 HOURS Resulted Current Medications Medications (Trade) Dose Ordered Sig/Allegra Route PRN Reason Start Time Stop Time Status Last Admin Dose Admin Acetaminophen (Tylenol) 650 mg Q4H PRN RECTAL Mild Pain (Pain Scale 1-3) 04/29/20 05:00 05/29/20 04:59 Acetaminophen (Tylenol) 650 mg Q4H PRN RECTAL Temp >100.5 04/29/20 05:00 05/29/20 04:59 Azithromycin 500 mg/Dextrose 275 ml @ 275 mls/hr Q24HRS IV 04/30/20 13:00 05/06/20 13:59 04/30/20 14:24 Ceftriaxone Sodium 1 gm/ Dextrose 55 ml @ 110 mls/hr Q24H IVPB 05/01/20 09:00 05/08/20 08:59 05/01/20 08:56 Megestrol Acetate (Megace) 400 mg DAILY ORAL 04/30/20 13:00 07/29/20 12:59 05/01/20 08:56 Risperidone (RisperDAL) 0.5 mg BID ORAL 04/29/20 09:00 06/13/20 08:59 05/01/20 08:56 Riwzana Wright MD May 01, 2020 11:20
[2020-05-01 12:00] VITALS: BP 130/87
[2020-05-01] MEDS: Azithromycin 500 MG in D5W 275 ML IV SCH (13:28)
--- NOTE | 2020-05-01 15:52 | General Progress Note ---
Subjective Allergies: Coded Allergies: No Known Allergies (Unverified , 04/29/20) Subjective doing ok po intake better Objective Last 24 Hour Vital Signs Date Time Temp Pulse Resp B/P (MAP) Pulse Ox O2 Delivery O2 Flow Rate FiO2 05/01/20 12:00 97.6 81 18 130/87 (101) 96 05/01/20 09:00 Room Air 05/01/20 08:00 98.8 87 17 136/90 (105) 95 05/01/20 04:00 97.8 59 20 121/68 (85) 96 05/01/20 00:00 97.7 72 17 120/69 (86) 97 04/30/20 21:00 Room Air 04/30/20 20:00 96.6 75 19 134/72 (92) 95 04/30/20 16:00 98.4 87 20 134/69 (90) 95 Intake and Output 04/30/20 05/01/20 19:00 07:00 Intake Total 450 ml 0 ml Output Total 600 ml 300 ml Balance -150 ml -300 ml Intake Oral 120 ml 0 ml IV Total 330 ml Output Urine Total 600 ml 300 ml Height (Feet): 5 Height (Inches): 8.00 Weight (Pounds): 178 General Appearance: alert Neck: supple Cardiovascular: regular rhythm Respiratory/Chest: crackles/rales Abdomen: non tender, soft Extremities: non-tender Assessment/Plan Assessment/Plan: 1 covid pna 2 uti 3 failure of thrive 4 htn 5 dementia iv abx iv decadrone id and pulmo consult resume feeding Usman Deras MD May 01, 2020 15:52
[2020-05-01 16:00] VITALS: BP_SYST 124; BP_SYST 129; BP_DIAS 61
--- NOTE | 2020-05-01 19:13 | NUR ---
NURSE HAND-OFF: Important Events on Shift: Patient Status: stable Diet: regular Pending Orders: n/a Pending Results/Labs:n/a Pending MD notification:n/a Latest Vital Signs: Temperature 98.1 , Pulse 62 , B/P 129 /61 , Respiratory Rate 18 , O2 SAT 97 , Room Air, O2 Flow Rate . Vital Sign Comment: stable Latest Reynolds Fall Score: 50 Fall Risk: High Risk Safety Measures: Call light Within Reach, Bed Alarm Zone 1, Side Rails Side Rails x2, Bed position Low and Locked. Fall Precautions: Yellow Socks Yellow Gown Door Sign Patient Fall Education Report given to TURNER Barragan.
--- NOTE | 2020-05-01 19:50 | NUR ---
NURSE NOTES: Received patient awake in bed, confused, no s/s of acute distress, no s/s of acute pain at this time. IV access patent, flushed with normal saline. Lombardo catheter noted, draining clear yellow liquid, patient tolerating well. Bed low and locked, patient wearing non slip socks.
[2020-05-01 20:00] VITALS: BP 125/70
--- NOTE | 2020-05-01 23:09 | Psychiatric Progress Note ---
Psychiatry Progress Note Psychiatry Progress Note Medications Current Medications Medications (Trade) Dose Ordered Sig/Allegra Route PRN Reason Start Time Stop Time Status Last Admin Dose Admin Acetaminophen (Tylenol) 650 mg Q4H PRN RECTAL Mild Pain (Pain Scale 1-3) 04/29/20 05:00 05/29/20 04:59 Acetaminophen (Tylenol) 650 mg Q4H PRN RECTAL Temp >100.5 04/29/20 05:00 05/29/20 04:59 Megestrol Acetate (Megace) 400 mg DAILY ORAL 04/30/20 13:00 07/29/20 12:59 05/01/20 08:56 Risperidone (RisperDAL) 0.5 mg BID ORAL 04/29/20 09:00 06/13/20 08:59 05/01/20 17:44 Neurological/Psychiatric: Reports: anxiety, depressed Allergies: Coded Allergies: No Known Allergies (Unverified , 04/29/20) Objective Data Height (Feet): 5 Height (Inches): 8.00 Weight (Pounds): 178 General Appearance: alert Additional Comments: The patient is alert, oriented times self, place, situation. Mood is depressed. Affect is blunted, congruent with mood. Thought process is concrete. Thought content, no suicidal, homicidal ideation. Cognition is impaired. Insight and judgment fair. ASSESSMENT: [place] I Major depressive disorder. [place] II Deferred. [place] III COVID-19. [place] IV Low. [place] V 50 PLAN: 1. We will start the patient on antidepressant. 2. Provide the patient with reality orientation and supportive therapy. Emily Rowland MD May 01, 2020 23:09
[2020-05-02] VITALS: BP 122/66
[2020-05-02 04:00] VITALS: BP 131/70
--- NOTE | 2020-05-02 07:26 | NUR ---
HAND-OFF: Report given to TURNER Connors.
[2020-05-02 08:00] VITALS: BP 121/76
--- NOTE | 2020-05-02 08:38 | NUR ---
NURSE NOTES: Patient is stable, shows no signs of respiratory distress on room air. Bed in lowest position and locked. Call light within reach. Will continue to monitor.
--- NOTE | 2020-05-02 09:03 | Pulmonology Progress Note ---
Subjective ROS Limited/Unobtainable: Yes Interval Events: none new Constitutional: Reports: no symptoms HEENT: Repors: no symptoms Respiratory: Reports: no symptoms Cardiovascular: Reports: no symptoms Gastrointestinal/Abdominal: Reports: no symptoms Allergies: Coded Allergies: No Known Allergies (Unverified , 04/29/20) Objective Last 24 Hour Vital Signs Date Time Temp Pulse Resp B/P (MAP) Pulse Ox O2 Delivery O2 Flow Rate FiO2 05/02/20 08:00 97.9 55 18 121/76 (91) 95 05/02/20 04:00 97.0 63 19 131/70 (90) 97 05/02/20 00:00 97.5 60 19 122/66 (84) 96 05/01/20 21:05 Room Air 05/01/20 20:00 97.7 68 19 125/70 (88) 96 05/01/20 16:00 98.1 62 18 129/61 (83) 97 05/01/20 16:00 98.1 62 18 124/61 (82) 97 05/01/20 12:00 97.6 81 18 130/87 (101) 96 Intake and Output 05/01/20 05/02/20 19:00 07:00 Intake Total 450 ml Output Total 450 ml 300 ml Balance 0 ml -300 ml Other 450 ml Output Urine Total 450 ml 300 ml # Bowel Movements 1 Objective 05/02/2020 pt asleep; saturating 97% on RA; heart rate 55 05/01/2020 FTT; persistent repetitive chewing motion noted; disoriented 04/30/2020 pt appears failure to thrive, sitting in bed chewing meals provided by COIN DEALER; NAD; well saturated on RA General Appearance: no acute distress, other HEENT: normocephalic, atraumatic Respiratory: chest wall non-tender, lungs clear, normal breath sounds Cardiovascular: normal rate, regular rhythm, no JVD Abdomen: soft, non tender Genitourinary: other - Lombardo Extremities: no edema Current Medications Medications (Trade) Dose Ordered Sig/Allegra Route PRN Reason Start Time Stop Time Status Last Admin Dose Admin Acetaminophen (Tylenol) 650 mg Q4H PRN RECTAL Mild Pain (Pain Scale 1-3) 04/29/20 05:00 05/29/20 04:59 Acetaminophen (Tylenol) 650 mg Q4H PRN RECTAL Temp >100.5 04/29/20 05:00 05/29/20 04:59 Megestrol Acetate (Megace) 400 mg DAILY ORAL 04/30/20 13:00 07/29/20 12:59 05/01/20 08:56 Risperidone (RisperDAL) 0.5 mg BID ORAL 04/29/20 09:00 06/13/20 08:59 05/01/20 17:44 Assessment/Plan Assessment/Plan IMPRESSION: 1. COVID-19 pneumonia. - s/p broad-spectrum Abx per ID - monitor off Abx per ID - CXR 04/29/2020: Bibasilar patchy airspace disease 2. Normoxemia. - doing well on room air - Hold off on Decadron or remdesivir. 3. Dementia. 4. DNR. 5. DVT ppx - on SCD We will follow. The care for this patient was discussed with my supervising physician Time spent for this care was approximately 31 muntes The patient was seen and examined at bedside and all new and available data was reviewed in the patients chart. I agree with the above findings, impression, and plan. (Patient was seen earlier today. Signature timestamp does not reflect patient encounter time) Roldan Avalos MD May 02, 2020 09:03 Rip Chakraborty MD May 02, 2020 17:29
[2020-05-02] MEDS: Megace 400mg/10ml Susp ORAL SCH (09:25)
--- NOTE | 2020-05-02 11:21 | General Progress Note ---
Subjective Allergies: Coded Allergies: No Known Allergies (Unverified , 04/29/20) Subjective doing ok feels better po intake better Objective Last 24 Hour Vital Signs Date Time Temp Pulse Resp B/P (MAP) Pulse Ox O2 Delivery O2 Flow Rate FiO2 05/02/20 09:00 Room Air 05/02/20 08:00 97.9 55 18 121/76 (91) 95 05/02/20 04:00 97.0 63 19 131/70 (90) 97 05/02/20 00:00 97.5 60 19 122/66 (84) 96 05/01/20 21:05 Room Air 05/01/20 20:00 97.7 68 19 125/70 (88) 96 05/01/20 16:00 98.1 62 18 129/61 (83) 97 05/01/20 16:00 98.1 62 18 124/61 (82) 97 05/01/20 12:00 97.6 81 18 130/87 (101) 96 Intake and Output 05/01/20 05/02/20 18:59 06:59 Intake Total 450 ml Output Total 450 ml 300 ml Balance 0 ml -300 ml Other 450 ml Output Urine Total 450 ml 300 ml # Bowel Movements 1 Height (Feet): 5 Height (Inches): 8.00 Weight (Pounds): 178 General Appearance: alert EENT: PERRL/EOMI Neck: supple Cardiovascular: regular rhythm Respiratory/Chest: crackles/rales Abdomen: non tender, soft Extremities: non-tender Assessment/Plan Assessment/Plan: 1 covid pna 2 uti 3 failure of thrive 4 htn 5 dementia iv abx iv decadrone id and pulmo consult resume feeding cont iv abx iv decadrone covid isolation Usman Deras MD May 02, 2020 11:21
--- NOTE | 2020-05-02 11:41 | Infectious Diseases Prog Note ---
Assessment/Plan Assessment/Plan antibiotics : none A 1. COVID 19 pneumonia on room air, 96 % saturation 2. GERD 3. anemia P 1. observe off antibiotics 2. continue isolation Subjective ROS Limited/Unobtainable: Yes Allergies: Coded Allergies: No Known Allergies (Unverified , 04/29/20) Objective Last 24 Hour Vital Signs Date Time Temp Pulse Resp B/P (MAP) Pulse Ox O2 Delivery O2 Flow Rate FiO2 05/02/20 09:00 Room Air 05/02/20 08:00 97.9 55 18 121/76 (91) 95 05/02/20 04:00 97.0 63 19 131/70 (90) 97 05/02/20 00:00 97.5 60 19 122/66 (84) 96 05/01/20 21:05 Room Air 05/01/20 20:00 97.7 68 19 125/70 (88) 96 05/01/20 16:00 98.1 62 18 129/61 (83) 97 05/01/20 16:00 98.1 62 18 124/61 (82) 97 05/01/20 12:00 97.6 81 18 130/87 (101) 96 Height (Feet): 5 Height (Inches): 8.00 Weight (Pounds): 178 Current Medications Medications (Trade) Dose Ordered Sig/Allegra Route PRN Reason Start Time Stop Time Status Last Admin Dose Admin Acetaminophen (Tylenol) 650 mg Q4H PRN RECTAL Mild Pain (Pain Scale 1-3) 04/29/20 05:00 05/29/20 04:59 Acetaminophen (Tylenol) 650 mg Q4H PRN RECTAL Temp >100.5 04/29/20 05:00 05/29/20 04:59 Megestrol Acetate (Megace) 400 mg DAILY ORAL 04/30/20 13:00 07/29/20 12:59 05/02/20 09:25 Risperidone (RisperDAL) 0.5 mg BID ORAL 04/29/20 09:00 06/13/20 08:59 05/02/20 09:25 Rizwana Wright MD May 02, 2020 11:41
[2020-05-02 12:00] VITALS: BP 97/60
--- NOTE | 2020-05-02 12:09 | NUR ---
ABSORBER OPERATOR NOTE MESSAGE LEFT FOR DR VIGIL IN RE TO OK PLAN. AWAITING CALL BACK. Addendum: 05/02/20 at 1238 by NIKI BRANDON LVN PER DR VIGIL, CONFIRM WITH [facility] PROTOCOL ON COVID ((+) RE-ADMIT. S/W HERI AT [facility] [phone]. [facility] IS ABLE TO RE-ADMIT PATIENT. DR VIGIL INFORMED.
--- NOTE | 2020-05-02 12:38 | NUR ---
DISCHARGE PLANNING PATIENT HAS BEEN REFERRED BACK TO [facility] P [phone] F [phone]
--- NOTE | 2020-05-02 15:51 | NUR ---
CASE MANAGEMENT:REVIEW SI;COVID-19 VIRAL INFECTION 98.1 55 20 97/60 94% ON RA IS;MEGACE PO QD RISPERDAL PO BID MED SURG STATUS DCP;PATIENT IS FROM [facility]
[2020-05-02 16:00] VITALS: BP 119/74
--- NOTE | 2020-05-02 19:04 | NUR ---
NURSE HAND-OFF: Important Events on Shift:COvid postivie. encourage po intake. Patient Status: stable, no fever, no cough, no sob Diet: regular Pending Orders: n/a Pending Results/Labs:n/a Pending MD notification:n/a Latest Vital Signs: Temperature 98.2 , Pulse 74 , B/P 119 /74 , Respiratory Rate 18 , O2 SAT 91 , Room Air, O2 Flow Rate . Vital Sign Comment: stable Latest Reynolds Fall Score: 50 Fall Risk: High Risk Safety Measures: Call light Within Reach, Bed Alarm Zone 1, Side Rails Side Rails x2, Bed position Low and Locked. Fall Precautions: Yellow Socks Yellow Gown Door Sign Patient Fall Education Report given to TURNER Lucas.
[2020-05-02 20:00] VITALS: BP 136/66
--- NOTE | 2020-05-02 20:00 | NUR ---
NURSE NOTES: Received patient awake in bed, confused, incomprehensible speech, no s/s of acute distress, no s/s of acute pain at this time. IV access patent, flushed with normal saline. Lombardo catheter noted, secured, draining clear yellow liquid, patient tolerating well. Bed low and locked, patient wearing non slip socks.
--- NOTE | 2020-05-02 23:10 | Psychiatric Progress Note ---
Psychiatry Progress Note Psychiatry Progress Note Medications Current Medications Medications (Trade) Dose Ordered Sig/Allegra Route PRN Reason Start Time Stop Time Status Last Admin Dose Admin Acetaminophen (Tylenol) 650 mg Q4H PRN RECTAL Mild Pain (Pain Scale 1-3) 04/29/20 05:00 05/29/20 04:59 Acetaminophen (Tylenol) 650 mg Q4H PRN RECTAL Temp >100.5 04/29/20 05:00 05/29/20 04:59 Megestrol Acetate (Megace) 400 mg DAILY ORAL 04/30/20 13:00 07/29/20 12:59 05/02/20 09:25 Risperidone (RisperDAL) 0.5 mg BID ORAL 04/29/20 09:00 06/13/20 08:59 05/02/20 17:55 Neurological/Psychiatric: Reports: anxiety, depressed, emotional problems Allergies: Coded Allergies: No Known Allergies (Unverified , 04/29/20) Objective Data Height (Feet): 5 Height (Inches): 8.00 Weight (Pounds): 178 General Appearance: WD/WN, no apparent distress, alert Additional Comments: The patient is alert, oriented times self, place, situation. Mood is depressed. Affect is blunted, congruent with mood. Thought process is concrete. Thought content, no suicidal, homicidal ideation. Cognition is impaired. Insight and judgment fair. ASSESSMENT: [place] I Major depressive disorder. [place] II Deferred. [place] III COVID-19. [place] IV Low. [place] V 50 PLAN: 1. We will start the patient on antidepressant. 2. Provide the patient with reality orientation and supportive therapy. Emily Rowland MD May 02, 2020 23:10
[2020-05-03] VITALS: BP 123/65
[2020-05-03 04:00] VITALS: BP 129/66
--- NOTE | 2020-05-03 07:26 | NUR ---
HAND-OFF: Report given to TURNER Salazar.
--- NOTE | 2020-05-03 07:28 | NUR ---
NURSE NOTES: Made rounds, pt is asleep in bed. respiration is even and unlabored on room air. No facial grimacing for pain and discomfort noted. No fever noted at this time, no episodes of coughing noted. HOB on semi-mendes. call light within reach.
[2020-05-03 08:00] VITALS: BP 129/72
[2020-05-03] MEDS: Megace 400mg/10ml Susp ORAL SCH (09:17)
--- NOTE | 2020-05-03 10:54 | Infectious Diseases Prog Note ---
Assessment/Plan Assessment/Plan A 1. COVID19 pneumonia on room air, 97 % saturation 2. GERD 3. anemia 4. Fever P 1. observe off antibiotics 2. continue isolation Subjective ROS Limited/Unobtainable: Yes Constitutional: Reports: fever, other - Jd=009.7 Allergies: Coded Allergies: No Known Allergies (Unverified , 04/29/20) Objective Last 24 Hour Vital Signs Date Time Temp Pulse Resp B/P (MAP) Pulse Ox O2 Delivery O2 Flow Rate FiO2 05/03/20 08:00 97.1 78 18 129/72 (91) 97 05/03/20 04:00 101.7 82 22 129/66 (87) 91 05/03/20 01:40 100.5 05/03/20 00:00 100.8 85 20 123/65 (84) 91 05/02/20 21:43 Room Air 05/02/20 20:00 100.2 88 22 136/66 (89) 91 05/02/20 16:00 98.2 74 18 119/74 (89) 91 05/02/20 12:00 98.1 64 20 97/60 (72) 94 Height (Feet): 5 Height (Inches): 8.00 Weight (Pounds): 178 General Appearance: no acute distress HEENT: mucous membranes moist Respiratory/Chest: lungs clear Cardiovascular: normal rate Abdomen: soft, non tender Extremities: no edema Neurologic/Psychiatric: other - opens eyes Current Medications Medications (Trade) Dose Ordered Sig/Allegra Route PRN Reason Start Time Stop Time Status Last Admin Dose Admin Acetaminophen (Tylenol) 650 mg Q4H PRN RECTAL Temp >100.5 04/29/20 05:00 05/29/20 04:59 05/03/20 01:09 Acetaminophen (Tylenol) 650 mg Q4H PRN RECTAL Mild Pain (Pain Scale 1-3) 04/29/20 05:00 05/29/20 04:59 Megestrol Acetate (Megace) 400 mg DAILY ORAL 04/30/20 13:00 07/29/20 12:59 05/03/20 09:17 Risperidone (RisperDAL) 0.5 mg BID ORAL 04/29/20 09:00 06/13/20 08:59 05/03/20 09:17 Fransisco Diaz MD May 03, 2020 10:54
--- NOTE | 2020-05-03 11:49 | General Progress Note ---
Subjective Allergies: Coded Allergies: No Known Allergies (Unverified , 04/29/20) Subjective doing ok feels better po intake better Objective Last 24 Hour Vital Signs Date Time Temp Pulse Resp B/P (MAP) Pulse Ox O2 Delivery O2 Flow Rate FiO2 05/03/20 08:00 97.1 78 18 129/72 (91) 97 05/03/20 04:00 101.7 82 22 129/66 (87) 91 05/03/20 01:40 100.5 05/03/20 00:00 100.8 85 20 123/65 (84) 91 05/02/20 21:43 Room Air 05/02/20 20:00 100.2 88 22 136/66 (89) 91 05/02/20 16:00 98.2 74 18 119/74 (89) 91 05/02/20 12:00 98.1 64 20 97/60 (72) 94 Intake and Output 05/02/20 05/03/20 19:00 07:00 Intake Total 200 ml Output Total 500 ml Balance -300 ml Other 200 ml Output Urine Total 500 ml Height (Feet): 5 Height (Inches): 8.00 Weight (Pounds): 178 General Appearance: alert EENT: PERRL/EOMI Neck: supple Cardiovascular: normal rate Respiratory/Chest: lungs clear Assessment/Plan Assessment/Plan: 1 covid pna 2 uti 3 failure of thrive 4 htn 5 dementia iv abx iv decadrone id and pulmo consult resume feeding cont iv abx covid isolation dc plan to snf with isolation Usman Deras MD May 03, 2020 11:49
[2020-05-03 12:00] VITALS: BP 125/61
--- NOTE | 2020-05-03 13:34 | Pulmonology Progress Note ---
Subjective ROS Limited/Unobtainable: Yes Interval Events: none new Constitutional: Reports: fever, other - Ab=599.7 HEENT: Repors: no symptoms Respiratory: Reports: no symptoms Cardiovascular: Reports: no symptoms Gastrointestinal/Abdominal: Reports: no symptoms Allergies: Coded Allergies: No Known Allergies (Unverified , 04/29/20) Objective Last 24 Hour Vital Signs Date Time Temp Pulse Resp B/P (MAP) Pulse Ox O2 Delivery O2 Flow Rate FiO2 05/03/20 12:00 99.1 82 17 125/61 (82) 93 05/03/20 09:00 Room Air 05/03/20 08:00 97.1 78 18 129/72 (91) 97 05/03/20 04:00 101.7 82 22 129/66 (87) 91 05/03/20 01:40 100.5 05/03/20 00:00 100.8 85 20 123/65 (84) 91 05/02/20 21:43 Room Air 05/02/20 20:00 100.2 88 22 136/66 (89) 91 05/02/20 16:00 98.2 74 18 119/74 (89) 91 Intake and Output 05/02/20 05/03/20 19:00 07:00 Intake Total 200 ml Output Total 500 ml Balance -300 ml Other 200 ml Output Urine Total 500 ml Objective 05/03/2020 pt asleep; saturating well on RA 05/02/2020 pt asleep; saturating 97% on RA; heart rate 55 05/01/2020 FTT; persistent repetitive chewing motion noted; disoriented 04/30/2020 pt appears failure to thrive, sitting in bed chewing meals provided by [employer]; NAD; well saturated on RA General Appearance: no acute distress, other HEENT: normocephalic, atraumatic Respiratory: chest wall non-tender, lungs clear, normal breath sounds Cardiovascular: normal rate, regular rhythm, no JVD Abdomen: soft, non tender Genitourinary: other - Lombardo Extremities: no edema Current Medications Medications (Trade) Dose Ordered Sig/Allegra Route PRN Reason Start Time Stop Time Status Last Admin Dose Admin Acetaminophen (Tylenol) 650 mg Q4H PRN RECTAL Temp >100.5 04/29/20 05:00 05/29/20 04:59 05/03/20 01:09 Acetaminophen (Tylenol) 650 mg Q4H PRN RECTAL Mild Pain (Pain Scale 1-3) 04/29/20 05:00 05/29/20 04:59 Megestrol Acetate (Megace) 400 mg DAILY ORAL 04/30/20 13:00 07/29/20 12:59 05/03/20 09:17 Risperidone (RisperDAL) 0.5 mg BID ORAL 04/29/20 09:00 06/13/20 08:59 05/03/20 09:17 Assessment/Plan Assessment/Plan IMPRESSION: 1. COVID-19 pneumonia. - s/p broad-spectrum Abx per ID - monitor off Abx per ID - CXR 04/29/2020: Bibasilar patchy airspace disease - CXR 05/03/2020 pending per ID 2. Normoxemia. - doing well on room air - Hold off on Decadron or remdesivir. 3. Dementia. 4. DNR. 5. DVT ppx - on SCD We will follow. The care for this patient was discussed with my supervising physician Time spent for this care was approximately 31 muntes The patient was seen and examined at bedside and all new and available data was reviewed in the patients chart. I agree with the above findings, impression, and plan. (Patient was seen earlier today. Signature timestamp does not reflect patient encounter time) Roldan Avalos MD May 03, 2020 13:34 Rip Chakraborty MD May 03, 2020 18:01
[2020-05-03 16:00] VITALS: BP 110/61
--- NOTE | 2020-05-03 18:45 | NUR ---
NURSE HAND-OFF: Important Events on Shift:n/a Patient Status: stable Diet: regular Pending Orders: n/a Pending Results/Labs:n/a Pending MD notification:n/a Latest Vital Signs: Temperature 97.6 , Pulse 70 , B/P 110 /61 , Respiratory Rate 17 , O2 SAT 95 , Room Air, O2 Flow Rate . Vital Sign Comment: stable Latest Reynolds Fall Score: 50 Fall Risk: High Risk Safety Measures: Call light Within Reach, Bed Alarm Zone 1, Side Rails Side Rails x2, Bed position Low and Locked. Fall Precautions: Yellow Socks Yellow Gown Door Sign Patient Fall Education Report given to . Addendum: 05/03/20 at 1921 by Martin Espinal RN HAND-OFF: Report given to
[2020-05-03 20:00] VITALS: BP 132/69
--- NOTE | 2020-05-03 20:03 | NUR ---
NURSE NOTES: Pt is in bed, awake. No acute distress noted. No SOB. Pt is on room air. Pt is confused. Fall precaution in place, bed alarm on, bed locked low in position,side rails up and call light within reach. Pt will be monitored.
[2020-05-04] VITALS: BP 122/64
[2020-05-04 04:00] VITALS: BP 132/71
--- NOTE | 2020-05-04 06:16 | NUR ---
NURSE NOTES: Pt is in bed, awake but confused. Pt is bedbound and contracted. Vitals stable, room air, no SOB. Pt repositioned, fed and cleaned. Bed linen changed, Fall precaution in place.
[2020-05-04 06:17] LABS: HEMATOCRIT 35.3 % (42.0-52.0); HEMOGLOBIN 12.7 G/DL (14.2-18.0); MEAN CORPUSCULAR VOLUME 89 FL (80-99); PLATELET COUNT 97 K/UL (150-450); RED BLOOD COUNT 3.98 M/UL (4.70-6.10); WHITE BLOOD COUNT 7.5 K/UL (4.8-10.8)
--- NOTE | 2020-05-04 07:17 | NUR ---
NURSE HAND-OFF: Important Events on Shift:[] Patient Status: [Stable] Diet: [Reg 1:1 feeder] Pending Orders: [] Pending Results/Labs:[cbc] Pending MD notification:[] Latest Vital Signs: Temperature 96.6 , Pulse 69 , B/P 132 /71 , Respiratory Rate 20 , O2 SAT 93 , Room Air, O2 Flow Rate . Vital Sign Comment: [] Latest Reynolds Fall Score: 50 Fall Risk: High Risk Safety Measures: Call light Within Reach, Bed Alarm Zone 1, Side Rails Side Rails x2, Bed position Low and Locked. Fall Precautions: Yellow Socks Yellow Gown Door Sign Patient Fall Education Report given to [KALEB Rangel. Informed pt is fall risk. ]
[2020-05-04 08:00] VITALS: BP 139/71
[2020-05-04] MEDS: Megace 400mg/10ml Susp ORAL SCH (09:20)
--- NOTE | 2020-05-04 09:39 | Pulmonology Progress Note ---
Subjective ROS Limited/Unobtainable: Yes Interval Events: none new Constitutional: Reports: fever, other - Ba=705.7 HEENT: Repors: no symptoms Respiratory: Reports: no symptoms Cardiovascular: Reports: no symptoms Gastrointestinal/Abdominal: Reports: no symptoms Allergies: Coded Allergies: No Known Allergies (Unverified , 04/29/20) Objective Last 24 Hour Vital Signs Date Time Temp Pulse Resp B/P (MAP) Pulse Ox O2 Delivery O2 Flow Rate FiO2 05/04/20 08:00 98.0 64 18 139/71 (93) 92 05/04/20 04:00 96.6 69 20 132/71 (91) 93 05/04/20 00:00 98.2 68 20 122/64 (83) 95 05/03/20 21:00 Room Air 05/03/20 20:00 98.4 71 20 132/69 (90) 93 05/03/20 16:00 97.6 70 17 110/61 (77) 95 05/03/20 12:00 99.1 82 17 125/61 (82) 93 Intake and Output 05/03/20 05/04/20 19:00 07:00 Intake Total 240 ml Output Total 450 ml 250 ml Balance -210 ml -250 ml Intake Oral 240 ml Output Urine Total 450 ml 250 ml Objective 05/04/2020 pt asleep; saturating well on RA 05/03/2020 pt asleep; saturating well on RA 05/02/2020 pt asleep; saturating 97% on RA; heart rate 55 05/01/2020 FTT; persistent repetitive chewing motion noted; disoriented 04/30/2020 pt appears failure to thrive, sitting in bed chewing meals provided by [employer]; NAD; well saturated on RA General Appearance: no acute distress HEENT: normocephalic, atraumatic Respiratory: chest wall non-tender, lungs clear, normal breath sounds Cardiovascular: normal rate, regular rhythm, no JVD Abdomen: soft, non tender Extremities: no edema Laboratory Tests 05/04/20 04:00: White Blood Count 7.5, Red Blood Count 3.98L, Hemoglobin 12.7L, Hematocrit 35.3L , Mean Corpuscular Volume 89, Mean Corpuscular Hemoglobin 31.9H, Mean Corpuscular Hemoglobin Concent 36.0, Red Cell Distribution Width 13.0, Platelet Count 97L, Mean Platelet Volume 8.2, Neutrophils (%) (Auto) , Lymphocytes (%) (Auto) , Monocytes (%) (Auto) , Eosinophils (%) (Auto) , Basophils (%) (Auto) Current Medications Medications (Trade) Dose Ordered Sig/Allegra Route PRN Reason Start Time Stop Time Status Last Admin Dose Admin Acetaminophen (Tylenol) 650 mg Q4H PRN RECTAL Temp >100.5 04/29/20 05:00 05/29/20 04:59 05/03/20 01:09 Acetaminophen (Tylenol) 650 mg Q4H PRN RECTAL Mild Pain (Pain Scale 1-3) 04/29/20 05:00 05/29/20 04:59 Megestrol Acetate (Megace) 400 mg DAILY ORAL 04/30/20 13:00 07/29/20 12:59 05/04/20 09:20 Risperidone (RisperDAL) 0.5 mg BID ORAL 04/29/20 09:00 06/13/20 08:59 05/04/20 09:20 Assessment/Plan Assessment/Plan IMPRESSION: 1. COVID-19 pneumonia. - s/p broad-spectrum Abx per ID - monitor off Abx per ID - CXR 04/29/2020: Bibasilar patchy airspace disease - CXR 05/04/2020 pending per ID 2. Normoxemia. - doing well on room air - Hold off on Decadron or remdesivir. 3. Dementia. 4. DNR. 5. DVT ppx - on SCD We will follow. The care for this patient was discussed with my supervising physician Time spent for this care was approximately 31 munRoldan Selby May 04, 2020 09:39
--- NOTE | 2020-05-04 10:43 | NUR ---
RADIOLOGY DEPT., CHEST X-RAY DONE.-P.DYE
--- NOTE | 2020-05-04 10:51 | NUR ---
DISCHARGE PLANNING PATIENT REFERRED BACK TO [facility] [phone] S/W HERI, PATIENT MAY RETURN TO ROOM 301[address] [facility] SKILLED DR VIGIL GAVE TO/RB TO DC PATIENT. NOTED AND CARRIED OUT. TRANSPORTATION ENDORSED TO [facility] TO COORDINATE WITH [facility]. Addendum: 05/04/20 at 1121 by NIKI BRANDON LVN BLS AMBULANCE TRANSPORTATION SCHEDULED WITH [facility] WITH ETA @ 1300 TABAT[address] TRUJILLO
--- NOTE | 2020-05-04 10:55 | NUR ---
RD ASSESSMENT & RECOMMENDATIONS SEE CARE ACTIVITY FOR COMPLETE ASSESSMENT DAILY ESTIMATED NEEDS: Needs based on Wound/ 80.7kg 25-30 kcals/kg total kcals 1.25-1.5 g protein/kg 101-121 g total protein 25-30 mL/kg total fluid mLs NUTRITION DIAGNOSIS: Increased kcal/prot/micronutrients needs R/T wound healing as evidenced by pt admitted w/ multiple wounds including DTPI L trochanter wound and non-blanchable erythema @ BL heels. CURRENT DIET:REGULAR PO DIET RECOMMENDATIONS: REGULAR/ texture as tolerated ADDITIONAL RECOMMENDATIONS: * Calibrated bedscale wt * Wound healing: add MVI x 1, Vit C 500mg QD, ZnSO4 220mg QD x 10 days Sae BID * Ensure Enlive x 1 w/ variable intake (350kcal/20g prot) * Monitor Po intake closely- variable at this time, on Megace
--- NOTE | 2020-05-04 11:37 | Infectious Diseases Prog Note ---
Assessment/Plan Assessment/Plan antibiotics : none A 1. COVID 19 pneumonia on room air, 93 % saturation 2. GERD 3. anemia P 1. observe off antibiotics 2. continue isolation Subjective ROS Limited/Unobtainable: Yes Allergies: Coded Allergies: No Known Allergies (Unverified , 04/29/20) Objective Last 24 Hour Vital Signs Date Time Temp Pulse Resp B/P (MAP) Pulse Ox O2 Delivery O2 Flow Rate FiO2 05/04/20 09:00 Room Air 05/04/20 08:00 98.0 64 18 139/71 (93) 92 05/04/20 04:00 96.6 69 20 132/71 (91) 93 05/04/20 00:00 98.2 68 20 122/64 (83) 95 05/03/20 21:00 Room Air 05/03/20 20:00 98.4 71 20 132/69 (90) 93 05/03/20 16:00 97.6 70 17 110/61 (77) 95 05/03/20 12:00 99.1 82 17 125/61 (82) 93 Height (Feet): 5 Height (Inches): 8.00 Weight (Pounds): 178 Laboratory Tests Test 05/04/20 04:00 White Blood Count 7.5 K/UL (4.8-10.8) Red Blood Count 3.98 M/UL (4.70-6.10) L Hemoglobin 12.7 G/DL (14.2-18.0) L Hematocrit 35.3 % (42.0-52.0) L Mean Corpuscular Volume 89 FL (80-99) Mean Corpuscular Hemoglobin 31.9 PG (27.0-31.0) H Mean Corpuscular Hemoglobin Concent 36.0 G/DL (32.0-36.0) Red Cell Distribution Width 13.0 % (11.6-14.8) Platelet Count 97 K/UL (150-450) L Mean Platelet Volume 8.2 FL (6.5-10.1) Neutrophils (%) (Auto) % (45.0-75.0) Lymphocytes (%) (Auto) % (20.0-45.0) Monocytes (%) (Auto) % (1.0-10.0) Eosinophils (%) (Auto) % (0.0-3.0) Basophils (%) (Auto) % (0.0-2.0) Current Medications Medications (Trade) Dose Ordered Sig/Allegra Route PRN Reason Start Time Stop Time Status Last Admin Dose Admin Acetaminophen (Tylenol) 650 mg Q4H PRN RECTAL Temp >100.5 04/29/20 05:00 05/29/20 04:59 05/03/20 01:09 Acetaminophen (Tylenol) 650 mg Q4H PRN RECTAL Mild Pain (Pain Scale 1-3) 04/29/20 05:00 05/29/20 04:59 Megestrol Acetate (Megace) 400 mg DAILY ORAL 04/30/20 13:00 07/29/20 12:59 05/04/20 09:20 Risperidone (RisperDAL) 0.5 mg BID ORAL 04/29/20 09:00 06/13/20 08:59 05/04/20 09:20 Rizwana Wright MD May 04, 2020 11:37
[2020-05-04 12:00] VITALS: BP 136/68
--- NOTE | 2020-05-04 14:17 | Diagnostic Imaging Report ---
Indication: Reason For Exam: SOB Technique: Single AP view of the chest. Comparison: Chest radiograph dated 04/29/2020 Findings: The cardiomediastinal silhouette is unchanged in appearance. There are streaky bibasilar airspace opacities. Right perihilar airspace opacities increasing in conspicuity. Small left and trace right pleural effusions. Mild pulmonary vascular congestion. No pneumothorax. No acute osseous abnormality. IMPRESSION: 1. Increasing right perihilar patchy airspace opacity which could represent worsening atelectasis or alveolar edema but pneumonia should be excluded clinically. 2. Small left and trace right pleural effusions with associated streaky airspace opacities likely representing compressive atelectasis.
--- NOTE | 2020-05-04 14:44 | NUR ---
NURSE NOTES: DISCHARGE TO [facility]. NO PERSONAL BELONGINGS NOTED. REMOVED IV HEPLOCK. KEPT CHACKO CATHETER ORDERD. WOUND PHOTO TAKEN AND UPLOADED AND TREATED. INFORMED [employer] FAMILY MEMBER. IN STABLE CONDITION. VSS.
--- NOTE | 2020-05-04 20:15 | Discharge Summary ---
DATE OF ADMISSION: 04/29/2020 DATE OF DISCHARGE: 05/04/2020 ADDENDUM HOSPITAL COURSE: This is a 79-year-old male came to the emergency room for COVID pneumonia. Patient was admitted in isolation, treated with IV antibiotics, bronchodilator treatments, and IV steroids. Pulmonary consult and ID consult were obtained. Patient clinically improved. He did not require oxygen. He is going [facility] to [facility]. DISCHARGE DIAGNOSES: 1. COVID pneumonia. 2. Hypertension. 3. Depression. DIET: He is on a regular diet. ACTIVITY: Patient is mostly bedbound. DISCHARGE MEDICATIONS: See the list from the hospital. Naresh Deras M.D. DR: GERMAN JOB#: [id number] CC:
--- NOTE | 2020-05-04 20:24 | Psychiatric Progress Note ---
Psychiatry Progress Note Psychiatry Progress Note Neurological/Psychiatric: Reports: anxiety, depressed, emotional problems Allergies: Coded Allergies: No Known Allergies (Unverified , 04/29/20) Objective Data Height (Feet): 5 Height (Inches): 8.00 Weight (Pounds): 178 General Appearance: alert Additional Comments: The patient is alert, oriented times self, place, situation. Mood is depressed. Affect is blunted, congruent with mood. Thought process is concrete. Thought content, no suicidal, homicidal ideation. Cognition is impaired. Insight and judgment fair. ASSESSMENT: Axtell I Major depressive disorder. Axtell II Deferred. Axtell III COVID-19. Axtell IV Low. Axtell V 50 PLAN: 1. We will start the patient on antidepressant. 2. Provide the patient with reality orientation and supportive therapy. Emily Rowland MD May 04, 2020 20:24
--- NOTE | 2020-05-04 21:45 | Consultation ---
DATE OF CONSULTATION: 05/04/2020 HISTORY OF PRESENT ILLNESS: This is a 79-year-old male with a history of depression, GERD, and anemia. He has been admitted to the hospital due to COVID pneumonia. The patient presents with depressed mood, anhedonia, anxiety, low energy, fatigue. PAST PSYCHIATRIC HISTORY: Depression and anxiety. PAST MEDICAL HISTORY: GERD and anemia. ALLERGIES: No known drug allergies. SUBSTANCE ABUSE HISTORY: No history of illicit drug use or alcohol. MENTAL STATUS EXAMINATION: The patient is alert, oriented times self, place, situation. Mood is depressed. Affect is blunted, congruent with mood. Thought process is concrete. Thought content, no suicidal, homicidal ideation. Cognition is impaired. Insight and judgment fair. ASSESSMENT: Roland I Major depressive disorder. Roland II Deferred. Roland III COVID-19. Roland IV Low. Roland V 50 PLAN: 1. We will start the patient on antidepressant. 2. Provide the patient with reality orientation and supportive therapy. Emily Rowland M.D. DR: DEBI JOB#: [id number] CC: KERLINE
== END 2020-05-04 14:45 | DRG 177 ==
LOC: EDBD 00:09 → EMR 00:29 → 4E 01:42 → EDBEDREQ 01:46 → 4E 05-04 04:17
DX: U07.1 COVID-19 (principal); J12.89 Other viral pneumonia; E87.2 Acidosis; M62.82 Rhabdomyolysis; N39.0 Urinary tract infection, site not specified; R41.82 Altered mental status, unspecified; F03.90 Unspecified dementia, unspecified severity, without behavioral disturbance, psychotic disturbance, mood disturbance, and anxiety; I10 Essential (primary) hypertension; D64.9 Anemia, unspecified; Z66 Do not resuscitate; K21.9 Gastro-esophageal reflux disease without esophagitis; F32.9 Major depressive disorder, single episode, unspecified; R62.7 Adult failure to thrive
CPT/HCPCS: 36415; 71045; 80053; 81003; 82550; 82553; 82728; 83605; 83615; 83690; 83880; 84484; 85007; 85025; 85379; 85610; 85730; 86140; 87040; 87081; 93005; 96361; 96365; 96367; 99291; J7030